=== PATIENT | male | born 1965 | race Caucasian/White ===

== ENCOUNTER 2021-04-05 22:17 | Observation (INO) | payer BC, SELFPAY ==
--- OUTSIDE RECORDS SUMMARY | 2021-04-05 22:24 | XMS REPORT | Continuity of Care Document ---
:1965 Author Organization [facility] t Address [address] [place] [address] Care Team Providers Name Role Phone Singer WYLIE Attending Clinician Audrey VARGAS Attending Clinician Katherine FLOYD Attending Clinician Joseluis WYLIE J Attending Clinician Nahun VARGAS Attending Clinician Shyam WYLIE Attending Clinician Lauren VARGAS Attending Clinician Arden VARGAS, S Attending Clinician Juan A VARGAS, C Attending Clinician [phone] Chinyere VARGAS, F Attending Clinician Tomeka VARGAS, T Attending Clinician Chacho Attending Clinician Raymond FLOYD, E Attending Clinician Dewey VARGAS Attending Clinician Neisha VARGAS, Dinah Attending Clinician Mauricio VARGAS Attending Clinician Suzan DANIELSON, G Attending Clinician Sanjeev VARGAS Attending Clinician SHELIA Attending Clinician Unavailable DEANA Attending Clinician Unavailable Audrey VARGAS Admitting Clinician Shyam WYLIE Admitting Clinician Dion Whitlock MD Admitting Clinician Lauren VARGAS Admitting Clinician SHELIA Admitting Clinician Unavailable DEANA Admitting Clinician Unavailable Problems This patient has no known problems. Allergies, Adverse Reactions, Alerts This patient has no known allergies or adverse reactions. Medications This patient has no known medications. Procedures This patient has no known procedures. Encounters Start End Encounter Admission Attending Care Care Encounter Source Date/Time Date/Time Type Type Clinicians Facility Department ID 2021-04-02 2021-04-03 Emergency Dequan Knowles 1.2.840. 114 [id number] 06:25:00 17:52:00 Antonette Ventura [id number] [place] [id number] 2021-04-01 2021-04-01 Transition Justine Murphy 1.2.840.114 [id number] 00:00:00 00:00:00 of Care Jen Pandya [id number] [place] 4.2.7.2.686 [id number] 2021-03-25 2021-03-31 [facility] Terri Huggins Lynn [facility] 1.2.84 0.114 [id number] 00:52:00 14:16:00 Encounter De Garnica [id number] [place] 4.2.7.2.686 [facility] [id number] 2021-03-05 2021-03-05 Transition Justine Murphy 1.2.840.114 [id number] 00:00:00 00:00:00 of Care Jen Pandya [id number] [place] 4.2.7.2.686 [id number] 2021-02-27 2021-02-27 Transition Justine Murphy 1.2.840.114 [id number] 00:00:00 00:00:00 of Care Jen Pandya 350.1.13.10 [place] 4.2.7.2.686 [id number] 2021-02-21 2021-02-26 [facility] Sheeba Her 1.2.840. 114 [id number] 02:16:00 17:27:00 [facility] 350.1.13.10 Junior Whitlock [facility] 4.2.7.2.686 TomekaAiden [id number] 2021-02-06 2021-02-06 Emergency [facility] 1.2.680.846 [id number] 19:15:00 23:10:00 Sheeba Barclay [place] 350.1.13.10 [place] 4.2.7.2.686 [place] [id number] 2020-12-30 2020-12-30 Transition Justine Flor 1.2.840.114 [id number] 00:00:00 00:00:00 of Care Deja Pandya 350.1.13.10 [place] 4.2.7.2.686 [id number] 2020-12-29 2020-12-29 Patient Anna Andrade Justine 1.2.840.114 [id number] 00:00:00 00:00:00 Outreach Pooja Mumtaz 350.1.13.10 [place] 4.2.7.2.686 [id number] 2020-12-24 2020-12-26 [facility] Dewey Doronvineet Gutierrez 1.2.840.1 14 [id number] 13:50:00 18:38:00 Encounter Brandee Driver [place] 350. 1.13.10 NazChidi Russell [facility] 4.2 .7.2.686 Tru Martínez [id number] 2020-12-24 2020-12-24 Transition Justine Flor 1.2.840.114 [id number] 00:00:00 00:00:00 of Care Deja Pandya 350.1.13.10 [place] 4.2.7.2.686 [id number] 2020-12-20 2020-12-23 [facility] 1.2.840. 114 [id number] 12:04:00 15:18:00 Encounter Dequan Knowles 350.1.13.10 Mar[place] Agu[place] 4.2.7.2.686 [facility] [id number] Results Test Description Test Time Test Comments Results Result Comments Source Chemistry 2019-12-28 04:59:00 Test Item Value Reference Range Interpretation Comme nts Chemistry (test code = NA-T) 136 mmol/L 136-145 N Chemistry (test code = K-T) 3.3 mmol/L 3.5-5.1 L Chemistry (test code = CL) 99 mmol/L 98-107 N Chemistry (test code = CO2) 29 mmol/L 22-29 N Chemistry (test code = ANGP) 11 mmol/L 10-20 N Chemistry (test code = BUN) 14 mg/dL 8.4-25.7 N Chemistry (test code = CREATT) 1.12 mg/dL 0.7-1.3 N Chemistry (test code = 68 Refer ence Range for Estimated EGFRMDRD) GFR: Greater than 90 mL/min/ 1.73 m2NOTE:The MDRD equation h as not been validated for u se with theelderly (ove r 70 years of age), women, patientswith se rious comorbid condition or pe rsons with extremes ofbody size, muscle mass, or nutrit ional status. Chemistry (test code = GLU-T) 99 mg/dL 70-105 N Chemistry (test code = CA) 8.8 mg/dL 7.8-10.44 N [id number] 04:09:00 Test Item Value Reference Range Interpretation Comments Chemistry (test code 134 mmol/L 136-145 L = NA-T) Chemistry (test code 3.8 mmol/L 3.5-5.1 N = K-T) Chemistry (test code 98 mmol/L 98-107 N = CL) Chemistry (test code 23 mmol/L 22-29 N = CO2) Chemistry (test code 17 mmol/L 10-20 N = ANGP) Chemistry (test code 18 mg/dL 8.4-25.7 N = BUN) Chemistry (test code 0.95 mg/dL 0.7-1.3 N = CREATT) Chemistry (test code 82 Referen ce Range for = EGFRMDRD) Estimated GFR: Great er than 90 mL/min/1.73 m2NOTE:The MDRD equation has no t been validated for u se with theelderly (ove r 70 years of age), women, patientswith se rious comorbid condit ion or persons with ex tremes ofbody size, mu scle mass, or nutrit ional status. Chemistry (test code 121 mg/dL 70-105 H = GLU-T) Chemistry (test code 8.3 mg/dL 7.8-10.44 N = CA) Chemistry (test code 2.0 mg/dL 0.2-1.2 H = TBILI-T) Chemistry (test code 7.0 g/dL 6.0-8.3 N = TP) Chemistry (test code 4.0 g/dL 3.5-5.0 N = ALB) Chemistry (test code 3.0 g/dL 2.4-3.5 N = GLOB) Chemistry (test code 1.3 g/dL 1.2-2.2 N = AG) Chemistry (test code 110 U/L 40-110 N = ALP) Chemistry (test code 26 U/L 5-34 N = AST) Chemistry (test code 16 U/L 8-55 N = ALT) [id number] 03:51:00 Test Item Value Reference Range Interpretation Comments Hematology (test code = WBCT) 7.5 thou/uL 4.8-10.8 N Hematology (test code = RBCT) 4.32 mill/uL 4.70-6.10 L Hematology (test code = HGBT) 12.6 g/dL 14.0-18.0 L Hematology (test code = HCTT) 39.0 % 42.0-52.0 L Hematology (test code = MCV) 90.2 fL 78.0-98.0 N Hematology (test code = MCH) 29.2 pg 27.0-31.0 N Hematology (test code = MCHC) 32.3 g/dL 32.0-36.0 N Hematology (test code = RDW) 13.8 % 11.5-14.5 N Hematology (test code = PLTT) 190 thou/uL 130-400 N Hematology (test code = MPV) 7.9 fL 7.4-10.4 N Hematology (test code = %NEUT) 76.4 % 42.0-75.0 H Hematology (test code = %LYMPH) 14.2 % 21.0-51.0 L Hematology (test code = %MONO) 9.1 % 0.0-10.0 N Hematology (test code = %EOS) 0.1 % 0.0-10.0 N Hematology (test code = %BASO) 0.3 % 0.0-1.0 N Hematology (test code = NEUT#) 5.7 thou/uL 1.40-6.50 N Hematology (test code = LYMPH#) 1.1 thou/uL 1.20-3.40 L Hematology (test code = MONO#) 0.7 thou/uL 0.11-0.59 H Hematology (test code = EOS#) 0.0 thou/uL 0.0-0.7 N Hematology (test code = BASO#) 0.0 thou/uL 0.0-0.2 N [id number] 03:13:00 Test Item Value Reference Range Interpretation Comments Chemistry (test 0.037 ng/mL < 0.028 H code = TROPI-T) Reference Ra nge 0.0 0 - 0.028 ng/mL Negative 0.0 29 - 0.29 ng/mL Indeterminate Greater or Equal to 0.3 ng/mL Steffanie torres [facility] Ldmtuybhe2557-57-84 00:10:00 Test Item Value Reference Range Interpretation Comments Chemistry (test 0.032 ng/mL < 0.028 H code = TROPI-T) Reference Ra nge 0.0 0 - 0.028 ng/mL Negative 0.0 29 - 0.29 ng/mL Indeterminate Greater or Equal to 0.3 ng/mL Strongly sugge sts IN Chemistry - Wbbcofzu1601-39-53 22:53:00 Test Item Value Reference Range Interpretation Comments Chemistry - Specials (test code 3.0026 uIU/mL 0.35-4.94 N = TSH3) [id number] 22:25:00 Test Item Value Reference Range Interpretation Comments Chemistry (test code = PHOS-T) 3.3 mg/dL 2.3-4.7 N Xuyfqxnda4727-94-20 22:25:00 Test Item Value Reference Range Interpretation Comments Chemistry (test code = MG) 2.0 mg/dL 1.6-2.6 N Chemistry - BNP, HgbA1c, [id number] 21:19:00 Test Item Value Reference Range Interpretation Comments Chemistry - BNP, HgbA1c, PTHi 38.9 pg/mL 0-100 N (test code = BNP) Tgnjskegq0743-33-82 21:11:00 Test Item Value Reference Range Interpretation Comments Chemistry (test 0.013 ng/mL < 0.028 code = TROPI-R) Reference Ra nge 0.0 0 - 0.028 ng/mL Negative 0.0 29 - 0.29 ng/mL Indeterminate Greater or Equal to 0.3 ng/mL Strongly sugge [facility] Qceyhufap6212-21-32 21:07:00 Test Item Value Reference Range Interpretation Comments Chemistry (test Less than 0.15 0.8-2.0 L Therapeut ic Range: code = DIG-T) ng/mL 0.8 - 2.0 ng/m LToxic Range: Greater than 2. 0 ng/mLDigoxin therapeutic ran ges are valid only if the specimen is drawn 6 to [address] the last dose w as administered. Medical Necessity Digoxin TherapyDate of last dose: thi npWljdzhamr2610-88-53 21:06:00 Test Item Value Reference Range Interpretation Comments Chemistry (test code 141 mmol/L 136-145 N = NA-T) Chemistry (test code 4.3 mmol/L 3.5-5.1 N = K-T) Chemistry (test code 100 mmol/L 98-107 N = CL) Chemistry (test code 23 mmol/L 22-29 N = CO2) Chemistry (test code 22 mmol/L 10-20 H = ANGP) Chemistry (test code 14 mg/dL 8.4-25.7 N = BUN) Chemistry (test code 1.01 mg/dL 0.7-1.3 N = CREATT) Chemistry (test code 77 Referen ce Range for = EGFRMDRD) Estimated GFR: Great er than 90 mL/min/1.73 m2NOTE:The MDRD equation has no t been validated for u se with theelderly (ove r 70 years of age), women, patientswith se rious comorbid condit ion or persons with ex tremes ofbody size, mu scle mass, or nutrit ional status. Chemistry (test code 99 mg/dL 70-105 N = GLU-T) Chemistry (test code 8.9 mg/dL 7.8-10.44 N = CA) Chemistry (test code 0.8 mg/dL 0.2-1.2 N = TBILI-T) Chemistry (test code 7.8 g/dL 6.0-8.3 N = TP) Chemistry (test code 4.4 g/dL 3.5-5.0 N = ALB) Chemistry (test code 3.4 g/dL 2.4-3.5 N = GLOB) Chemistry (test code 1.3 g/dL 1.2-2.2 N = AG) Chemistry (test code 104 U/L 40-110 N = ALP) Chemistry (test code 25 U/L 5-34 N = AST) Chemistry (test code 16 U/L 8-55 N = ALT) [id number] 21:06:00 Test Item Value Reference Range Interpretation Comments Chemistry (test code = CK) 321 U/L 30-200 H [id number] 21:05:00 Test Item Value Reference Range Interpretation Comments Hematology (test code = 6.8 thou/uL 4.8-10.8 N WBCT) Hematology (test code = 4.80 mill/uL 4.70-6.10 N RBCT) Hematology (test code = 14.8 g/dL 14.0-18.0 N HGBT) Hematology (test code = 42.9 % 42.0-52.0 N HCTT) Hematology (test code = MCV) 89.3 fL 78.0-98.0 N Hematology (test code = MCH) 30.8 pg 27.0-31.0 N Hematology (test code = 34.4 g/dL 32.0-36.0 N MCHC) Hematology (test code = RDW) 14.4 % 11.5-14.5 N Hematology (test code = 237 thou/uL 130-400 N PLTT) Hematology (test code = MPV) 7.7 fL 7.4-10.4 N Hematology (test code = NE) 66 % 42-75 N Hematology (test code = LY) 28 % 21-51 N Hematology (test code = MO) 5 % 0-10 N Hematology (test code = EO) 1 % 0-10 N Hematology (test code = Appears Adequate PCOMMENT) Hematology (test code = MC) Normal Clphdpwfe5683-11-11 05:36:00 Test Item Value Reference Range Interpretation Comments Chemistry (test code 138 mmol/L 136-145 N = NA-T) Chemistry (test code 3.8 mmol/L 3.5-5.1 N = K-T) Chemistry (test code 102 mmol/L 98-107 N = CL) Chemistry (test code 27 mmol/L 22-29 N = CO2) Chemistry (test code 13 mmol/L 10-20 N = ANGP) Chemistry (test code 14 mg/dL 8.4-25.7 N = BUN) Chemistry (test code 1.01 mg/dL 0.7-1.3 N = CREATT) Chemistry (test code 77 Referen ce Range for = EGFRMDRD) Estimated GFR: Great er than 90 mL/min/1.73 m2NOTE:The MDRD equation has no t been validated for u se with theelderly (ove r 70 years of age), women, patientswith se rious comorbid condit ion or persons with ex tremes ofbody size, mu scle mass, or nutrit ional status. Chemistry (test code 103 mg/dL 70-105 N = GLU-T) Chemistry (test code 8.2 mg/dL 7.8-10.44 N = CA) [id number] 18:15:00 Test Item Value Reference Range Interpretation Comments Coagulation (test code = PTT) 30.5 SEC 22.9-36.1 N Anticoagulant? IV [id number] 12:40:00 Test Item Value Reference Range Interpretation Comments Coagulation (test code = PTT) 76.6 SEC 22.9-36.1 H Anticoagulant? IV HEPARINChemistry - Ormgplui0436-40-74 06:27:00 Test Item Value Reference Range Interpretation Comments Chemistry - Specials (test code = 19.01 ng/mL 22-322 L PATTY) [id number] 06:16:00 Test Item Value Reference Range Interpretation Comments Chemistry (test code 137 mmol/L 136-145 N = NA-T) Chemistry (test code 4.0 mmol/L 3.5-5.1 N = K-T) Chemistry (test code 101 mmol/L 98-107 N = CL) Chemistry (test code 25 mmol/L 22-29 N = CO2) Chemistry (test code 15 mmol/L 10-20 N = ANGP) Chemistry (test code 12 mg/dL 8.4-25.7 N = BUN) Chemistry (test code 0.89 mg/dL 0.7-1.3 N = CREATT) Chemistry (test code 89 Referen ce Range for = EGFRMDRD) Estimated GFR: Great er than 90 mL/min/1.73 m2NOTE:The MDRD equation has no t been validated for u se with theelderly (ove r 70 years of age), women, patientswith se rious comorbid condit ion or persons with ex tremes ofbody size, mu scle mass, or nutrit ional status. Chemistry (test code 100 mg/dL 70-105 N = GLU-T) Chemistry (test code 8.0 mg/dL 7.8-10.44 N = CA) [id number] 06:16:00 Test Item Value Reference Range Interpretation Comments Chemistry (test code = IRON) 103 ug/dL 65-175 N Gcrlawtfq0478-76-05 06:13:00 Test Item Value Reference Range Interpretation Comments Chemistry (test code = IRON) 104 ug/dL 65-175 N Chemistry (test code = TIBC) 524 mcg/dL 261-462 H Chemistry (test code = IRONPSATC) 20 % 20-50 N [id number] 06:13:00 Test Item Value Reference Range Interpretation Comments Chemistry (test Less than 0.15 0.8-2.0 L Therapeut ic Range: code = DIG-T) ng/mL 0.8 - 2.0 ng/m LToxic Range: Greater than 2. 0 ng/mLDigoxin therapeutic ran ges are valid only if the specimen is drawn 6 to [address] the last dose w as administered. [id number] 05:56:00 Test Item Value Reference Range Interpretation Comments Coagulation (test code = PTT) 58.5 SEC 22.9-36.1 H Anticoagulant? IV [id number] 05:48:00 Test Item Value Reference Range Interpretation Comments Hematology (test code = WBCT) 7.3 thou/uL 4.8-10.8 N Hematology (test code = RBCT) 4.03 mill/uL 4.70-6.10 L Hematology (test code = HGBT) 9.8 g/dL 14.0-18.0 L Hematology (test code = HCTT) 30.5 % 42.0-52.0 L Hematology (test code = MCV) 75.7 fL 78.0-98.0 L Hematology (test code = MCH) 24.3 pg 27.0-31.0 L Hematology (test code = MCHC) 32.1 g/dL 32.0-36.0 N Hematology (test code = RDW) 16.9 % 11.5-14.5 H Hematology (test code = PLTT) 285 thou/uL 130-400 N Hematology (test code = MPV) 8.5 fL 7.4-10.4 N Hematology (test code = %NEUT) 61.5 % 42.0-75.0 N Hematology (test code = %LYMPH) 20.0 % 21.0-51.0 L Hematology (test code = %MONO) 9.9 % 0.0-10.0 N Hematology (test code = %EOS) 7.0 % 0.0-10.0 N Hematology (test code = %BASO) 1.7 % 0.0-1.0 H Hematology (test code = NEUT#) 4.5 thou/uL 1.40-6.50 N Hematology (test code = LYMPH#) 1.5 thou/uL 1.20-3.40 N Hematology (test code = MONO#) 0.7 thou/uL 0.11-0.59 H Hematology (test code = EOS#) 0.5 thou/uL 0.0-0.7 N Hematology (test code = BASO#) 0.1 thou/uL 0.0-0.2 N [id number] 22:19:00 Test Item Value Reference Range Interpretation Comments Coagulation (test code = PTT) 42.4 SEC 22.9-36.1 H Anticoagulant? IV [id number] 14:55:00 Test Item Value Reference Range Interpretation Comments Coagulation (test code = PTT) 31.0 SEC 22.9-36.1 N Comment Baseline 6hrs after starting drip; then protocolAnticoagulant? IV [id number] 14:48:00 Test Item Value Reference Range Interpretation Comments Hematology (test code = HGBT) 9.8 g/dL 14.0-18.0 L Hematology (test code = HCTT) 30.0 % 42.0-52.0 L Hematology (test code = PLTT) 309 thou/uL 130-400 N Comment Baseline and Q48H while patient on Heparin OfldYwcmxwnlv1252-15-57 02:50:00 Test Item Value Reference Range Interpretation Comments Chemistry (test 0.012 ng/mL < 0.028 code = TROPI-R) Reference Ra nge 0.0 0 - 0.028 ng/mL Negative 0.0 29 - 0.29 ng/mL Indeterminate Greater or Equal to 0.3 ng/mL Strongly sugge sts IN Cgepuhzxwz4270-12-75 01:04:00 Test Item Value Reference Range Interpretation Comments Urinalysis (test code = Light-Yellow Yellow UACLR) Urinalysis (test code = Clear Clear UACLY) Urinalysis (test code = SPGR) 1.025 1.002-1.036 N Urinalysis (test code = TARA) 5.5 5.0-9.0 N Urinalysis (test code = Negative Rohit/uL Negative UALEU) Urinalysis (test code = Negative Negative UANIT) Urinalysis (test code = 20 mg/dL Neg-Trace PROUADIP) Urinalysis (test code = Normal mg/dL Negative GLUCU) Urinalysis (test code = KETU) Negative mg/dL Negative Urinalysis (test code = Normal mg/dL Less than 2 UAUROB) Urinalysis (test code = Negative Negative UABIL) Urinalysis (test code = Negative Negative UABLD) Urine Source: Urine [id number] 22:45:00 Test Item Value Reference Range Interpretation Comments Chemistry (test Less than < 0.028 code = TROPI-R) 0.010 ng/mL Reference Ra nge 0. 00 - 0.028 ng/mL Negative 0.029 - 0.29 n g/mL Indeterminate Greater or Equa l to 0.3 ng/mL St [place] suggests IN Yzzpzusie0949-30-23 20:48:00 Test Item Value Reference Range Interpretation Comments Chemistry (test code = CK) 124 U/L 30-200 N Qlrukydpl7579-00-38 20:48:00 Test Item Value Reference Range Interpretation Comments Chemistry (test code = LIP) 35 U/L 8-78 N Chemistry - BNP, HgbA1c, [id number] 20:45:00 Test Item Value Reference Range Interpretation Comments Chemistry - BNP, HgbA1c, PTHi 80.7 pg/mL 0-100 N (test code = BNP) [id number] 20:45:00 Test Item Value Reference Range Interpretation Comments Chemistry (test Less than < 0.028 code = TROPI-R) 0.010 ng/mL Reference Ra nge 0. 00 - 0.028 ng/mL Negative 0.029 - 0.29 n g/mL Indeterminate Greater or Equa l to 0.3 ng/mL St rongly suggests IN Qifszdycr0839-53-22 20:40:00 Test Item Value Reference Range Interpretation Comments Chemistry (test 144 mmol/L 136-145 N code = NA-T) Chemistry (test 4.0 mmol/L 3.5-5.1 N code = K-T) Chemistry (test 110 mmol/L 98-107 H code = CL) Chemistry (test 22 mmol/L 22-29 N code = CO2) Chemistry (test 16 mmol/L 10-20 N code = ANGP) Chemistry (test 9 mg/dL 8.4-25.7 N code = BUN) Chemistry (test 0.84 mg/dL 0.7-1.3 N code = CREATT) Chemistry (test Greater than 90 Referenc e Range for code = EGFRMDRD) Estimated G FR: Gre ater than 90 mL/min/ 1.73 m2NOTE:The MDRD equation has no t been validated for use with theeld erly (over 70 years of age), women, patients with serious comorbi d condition or pe rsons with extremes o fbody size, muscle ma ss, or nutritional status. Chemistry (test 116 mg/dL 70-105 H code = GLU-T) Chemistry (test 7.9 mg/dL 7.8-10.44 N code = CA) Chemistry (test 0.2 mg/dL 0.2-1.2 N code = TBILI-T) Chemistry (test 6.9 g/dL 6.0-8.3 N code = TP) Chemistry (test 3.9 g/dL 3.5-5.0 N code = ALB) Chemistry (test 3.0 g/dL 2.4-3.5 N code = GLOB) Chemistry (test 1.3 g/dL 1.2-2.2 N code = AG) Chemistry (test 100 U/L 40-150 N code = ALP) Chemistry (test 20 U/L 5-34 N code = AST) Chemistry (test 15 U/L 8-55 N code = ALT) [id number] 20:40:00 Test Item Value Reference Range Interpretation Comments Chemistry (test code = MG) 2.1 mg/dL 1.6-2.6 N [id number] 20:31:00 Test Item Value Reference Range Interpretation Comments Coagulation (test 0.41 *mcg/mL 0.27-0.43 N * Referenc e Range code = DDIMTT) Units: mcg/mL of fibri nogen equivalent units(FEU)Based upon a retrospective study of [facility] tients in March 2006, a result of"Less than 0. 44 mcg/mL FEU" is predictive of t he absence ofa DVT or PE. Qxkqsttvbg8536-02-25 20:18:00 Test Item Value Reference Range Interpretation Comments Hematology (test code = WBCT) 5.9 thou/uL 4.8-10.8 N Hematology (test code = RBCT) 4.31 mill/uL 4.70-6.10 L Hematology (test code = HGBT) 10.5 g/dL 14.0-18.0 L Hematology (test code = HCTT) 32.5 % 42.0-52.0 L Hematology (test code = MCV) 75.3 fL 78.0-98.0 L Hematology (test code = MCH) 24.3 pg 27.0-31.0 L Hematology (test code = MCHC) 32.3 g/dL 32.0-36.0 N Hematology (test code = RDW) 17.5 % 11.5-14.5 H Hematology (test code = PLTT) 363 thou/uL 130-400 N Hematology (test code = MPV) 7.6 fL 7.4-10.4 N Hematology (test code = %NEUT) 44.6 % 42.0-75.0 N Hematology (test code = %LYMPH) 39.1 % 21.0-51.0 N Hematology (test code = %MONO) 11.4 % 0.0-10.0 H Hematology (test code = %EOS) 4.3 % 0.0-10.0 N Hematology (test code = %BASO) 0.6 % 0.0-1.0 N Hematology (test code = NEUT#) 2.6 thou/uL 1.40-6.50 N Hematology (test code = LYMPH#) 2.3 thou/uL 1.20-3.40 N Hematology (test code = MONO#) 0.7 thou/uL 0.11-0.59 H Hematology (test code = EOS#) 0.3 thou/uL 0.0-0.7 N Hematology (test code = BASO#) 0.0 thou/uL 0.0-0.2 N XR Abdomen 2 [facility] Pt Name: MYRNA PEREZ [employer] Phys: [place] [address] : 1965 Age: 54 SEX:M [phone] Exam Date: 12/25/19 Status: ADM IN Acct: [id number] Loc: [facility]OLD Pt Unit #: [id number] Report #: [id number] CC: MAGDALENA BASS MD IMAGING SERVICES REPORT Order # Category/Exam [id number] RAD/XR Abdomen 2 View ([id number]): . Results EXAM: XR Abdomen 2 View DATE: 12/25/2019 4:08 AM INDICATION: Nausea vomiting COMPARISON: None. FINDING: Lung bases are clear. No pneumoperitoneum is evident. Bowel gas pattern is unobstructed. No suspicious calcifications are evident. There is mildscattered degenerative change of the visualized osseous structures. IMPRESSION:No acute abnormality. Reported By: Dewey Roach MD Electronically Signed Date/Time: 12/25/19 0744 Technologist: SÁNCHEZ Dictated Date/Time: 12/25/19 0743 Transcribed Date/Time:[facility] MYRNA PEREZ [employer] Phys: [place] [address] : 1965 Age: 54 SEX:M [phone] Exam Date: 12/24/19 Status: ADM IN Acct: [id number] Loc: ER[facility]OLD Pt Unit #: [id number] Report #: [id number] CC: MARIELA JAVED MD, MALIK MD IMAGING SERVICES REPORT Order # Category/[id number] RAD/XR Chest 1 View Portable ([id number]): . Results PORTABLE CHEST: History: Chest pain Comparison: 04-05-19 FINDINGS: Cardiomegaly. Mild vascular congestion. Noconsolidation or focal infiltrate. Small effusions are not excluded. Chest appears unchanged from the prior study. IMPRESSION: Cardiomegaly with mild to moderate vascular congestion. POS: AGW Reported By: Abdias Nieves MD Electronically Signed Date/Time: 12/25/19 09 Technologist: SÁNCHEZ Dictated Date/Time: 12/24/192044 Transcribed Date/Time: 12/24/192106XR [facility] MY[facility] [address] Phys: Shavonne Paul NP [facility] [place] [id number] : 1965 Age: 54 SEX:M [phone] Exam Date: 08/02/19 Status: REG ER Acct: [id number] Loc: ERS Pt Unit #: [id number] Report #: [id number] CC: Shavonne Paul NP [facility] REPORT Order # Category/Exam [id number] RAD/XR Chest 1 View Portable ([id number]): . Results Chest one view HISTORY: Chest pain. FINDINGS: No co mparison. Cardiac silhouette is magnified and enlarged. Pulmonary vasculature upper limits of normal. Mediastinum is midline. No lobar consolidation or evidence of pneumothorax. IMPRESSION: Cardiomegaly. Borderline pulmonary vascular congestion. Reported By: Maeve Walker Tracy ctronically Signed: 08/02/2019 8:28 PM Reported By: Herb Walker MD Electronically Signed Date/Time: 08/02/192027 Technologist: Dictated Date/Time: 08/02/192026 Transcribed Date/Time:
[2021-04-05] MEDS ORDERED: METOPROLOL TAR 25 MG TAB ONE (23:36)
[2021-04-06] MEDS ORDERED: dilTIAZem HCL 25 MG/5 ML VIAL IV ONE (00:20)
[2021-04-06 00:21] LABS: Protime INR 1.12
[2021-04-06 00:32] LABS: Absolute Lymphocytes (CBC) 1.5 K/uL (0.7-4.9); Basophils % 0.3 % (0-1.3); Hematocrit 47.7 % (39.6-49.0); Lymphocytes % 19.6 % (15.3-44.8); MPV 8.2 fL (7.6-11.3)
[2021-04-06 00:45] LABS: ALT/SGPT 50 U/L (12-78); AST/SGOT 72 U/L (15-37); Albumin 4.1 g/dL (3.4-5.0); Alkaline Phosphatase 132 U/L (45-117); BUN Blood Urea Nitrogen 11 mg/dL (7-18); Bicarbonate 30 mmol/L (21-32); Bilirubin Direct 0.3 mg/dL (0-0.2); Bilirubin Total 0.7 mg/dL (0.2-1.0); Glucose Level 102 mg/dL (74-106); Magnesium 2.3 mg/dL (1.8-2.4); NT PRO-BNP 232 pg/mL (<125); Protein, Total 8.6 g/dL (6.4-8.2); Sodium Level 142 mmol/L (136-145); Troponin (Emerg Dept Use Only) < 0.02 ng/mL (0.0-0.045)
[2021-04-06] MEDS ORDERED: ONDANSETRON 4 MG/2 ML VIAL ONE (00:57)
[2021-04-06] MEDS ORDERED: MORPHINE 4 MG/ML SYR ONE (00:57)
[2021-04-06] MEDS ORDERED: KETOROLAC 30 MG/ML INJ ONE (01:43)
--- NOTE | 2021-04-06 02:16 | EDPHYS ---
Physician Documentation [facility] Name: Aidan Perez Age: 56 yrs Sex: Male : 1965 Arrival Date: 04/05/2021 Time: 22:19 Bed 7 Private MD: ED Physician Kevin Mathew HPI: 04/06 02:16 This 56 yrs old Male presents to ER via EMS with complaints of chest pain. tw4 02:16 The patient or guardian reports chest pain that is located primarily in the anterior tw4 chest wall. Onset: today. The pain does not radiate. Associated signs and symptoms: The patient has no apparent associated signs or symptoms. Modifying factors: The symptoms are alleviated by nothing. the symptoms are aggravated by nothing. Severity of pain: At its worst the pain was moderate in the emergency department the pain is unchanged. Historical: - Allergies: 04/05 22:37 Keflex; wh - PMHx: 22:37 Afib with RVR; Hypertension; wh - Immunization history:: Adult Immunizations up to date. - Social history:: Smoking status: unknown. ROS: 04/06 02:16 Constitutional: Negative for fever, chills, and weight loss, Eyes: Negative for injury, tw4 pain, redness, and discharge, Neck: Negative for injury, pain, and swelling, Respiratory: Negative for shortness of breath, cough, wheezing, and pleuritic chest pain, Abdomen/GI: Negative for abdominal pain, nausea, vomiting, diarrhea, and constipation, Back: Negative for injury and pain, MS/Extremity: Negative for injury and deformity, Skin: Negative for injury, rash, and discoloration, Neuro: Negative for headache, weakness, numbness, tingling, and seizure. Cardiovascular: Positive for chest pain, Negative for edema, orthopnea, palpitations, paroxysmal nocturnal dyspnea. Exam: 02:16 Constitutional: This is a well developed, well nourished patient who is awake, alert, tw4 and in no acute distress. Head/Face: Normocephalic, atraumatic. Chest/axilla: Normal chest wall appearance and motion. Nontender with no deformity. No lesions are appreciated. Respiratory: Lungs have equal breath sounds bilaterally, clear to auscultation and percussion. No rales, rhonchi or wheezes noted. No increased work of breathing, no retractions or nasal flaring. Abdomen/GI: Soft, non-tender, with normal bowel sounds. No distension or tympany. No guarding or rebound. No evidence of tenderness throughout. Back: No spinal tenderness. No costovertebral tenderness. Full range of motion. Skin: Warm, dry with normal turgor. Normal color with no rashes, no lesions, and no evidence of cellulitis. MS/ Extremity: Pulses equal, no cyanosis. Neurovascular intact. Full, normal range of motion. Neuro: Awake and alert, GCS 15, oriented to person, place, time, and situation. Cranial nerves II-XII grossly intact. Motor strength 5/5 in all extremities. Sensory grossly intact. Cerebellar exam normal. Normal gait. 02:16 Cardiovascular: Rate: tachycardic, actual rate is 166 bpm, Rhythm: irregularly irregular. Vital Signs: 04/05 22:32 BP 152 / 89; Pulse 126; Resp 20; Temp 98.2; Pulse Ox 97% on R/A; Weight 199.58 kg; Height 6 ft. 3 in. (190.50 cm); Pain 10; 04/06 00:00 BP 123 / 79; Pulse 106; Resp 18; Pulse Ox 98% on R/A; wh 02:00 BP 140 / 76; Pulse 106; Resp 18; Pulse Ox 98% on R/A; 03:15 BP 135 / 92; Pulse 99; Resp 18; Pulse Ox 94% on R/A; 05 22:32 Body Mass Index 55.00 (199.58 kg, 190.50 cm) wh MDM: 04/05 22:19 Patient medically screened. tw4 04/06 02:34 Data reviewed: vital signs, nurses notes. Data interpreted: equipment monitor phototypesetting: rhythm is tw4 normal sinus rhythm, Pulse oximetry: Interpretation: acceptable. Counseling: I had a detailed discussion with the patient and/or guardian regarding: the historical points, exam findings, and any diagnostic results supporting the discharge/admit diagnosis. 04/05 22:37 Order name: Basic Metabolic Panel 04/05 22:37 Order name: CBC with Diff 04/05 22:37 Order name: LFT's; Complete Time: 01:00 04/06 01:01 Interpretation: Normal except: A/G 0.9; AST 72; ALK 132; BILID 0.3; TP 8.6; GLOB 4.5. [facility] 04/05 22:37 Order name: Magnesium; Complete Time: 01: 04/06 01:02 Interpretation: Within normal limits: MG 2.3. 4 04/05 22:37 Order name: NT PRO-BNP; Complete Time: 01:00 04/06 01:01 Interpretation: Normal except: NT PRO-BNP 232. [facility] 04/05 22:37 Order name: PT-INR; Complete Time: 01: 04/06 01:01 Interpretation: Normal except: PT 12.9. [facility] 04/05 22:37 Order name: Troponin (emerg Dept Use Only); Complete Time: : 04/05 22:37 Order name: XRAY Chest (1 view) 04/05 22:37 Order name: Basic Metabolic Panel; Complete Time: 01:00 [facility] 05 01:02 Interpretation: Normal except: GFR 79. [facility] 04/05 22:37 Order name: CBC with Automated Diff; Complete Time: 01:00 [facility] 04/06 00:16 Order name: COVID-19 : Document "Date of Symptom Onset" if Symptomatic. 04/06 01:17 Order name: SARS-COV-2 RT PCR [facility] 04/05 22:37 Order name: EKG; Complete Time: 22:37 04/05 22:37 Order name: Cardiac monitoring; Complete Time: 00: 04/05 22:37 Order name: EKG - Nurse/Tech; Complete Time: 00:00 04/05 22:37 Order name: IV Saline Lock; Complete Time: 00: 04/05 22:37 Order name: Labs collected and sent; Complete Time: 00: 04/05 22:37 Order name: O2 Per Protocol; Complete Time: 00: 04/05 22:37 Order name: O2 Sat Monitoring; Complete Time: 00: 04/06 03:04 Order name: CONS Physician Consult ED[facility] EC:40 Rate is 179 beats/min. Rhythm is irregularly irregular. QRS [place] is Normal. MT interval tw4 is normal. QT interval is normal. No Q waves. T waves are Normal. Clinical impression: Atrial Fibrillation. Interpreted by me. Reviewed by me. Administered Medications: 05/09 23:19 Drug: Metoprolol 25 mg Route: PO; 04/06 03:22 Follow up: Response: No adverse reaction 04/05 23:28 Drug: morphine 4 mg {Note: RASS 0.} Route: IVP; Site: right antecubital; 04/06 03:45 Follow up: Response: No adverse reaction; Pain is decreased; RASS: Alert and Calm (0) 04/05 23:30 Drug: Zofran (Ondansetron) 4 mg Route: IVP; Site: right antecubital; 04/06 03:45 Follow up: Response: No adverse reaction 00:13 Drug: Cardizem (diltiazem) 20 mg Route: IVP; Site: right antecubital; 03:22 Follow up: Response: No adverse reaction 01:28 Drug: TORadol (ketorolac) 30 mg Route: IVP; Site: right antecubital; 03:22 Follow up: Response: No adverse reaction 03:29 Drug: Dilaudid (HYDROmorphone) 0.5 mg {Note: RASS 0.} Route: IVP; Site: right antecubital; 03:45 Follow up: Response: No adverse reaction; Pain is decreased; RASS: Alert and Calm (0) Disposition: 04/06/21 02:15 Hospitalization ordered by Morris Carter for Inpatient Admission. Preliminary diagnosis are Paroxysmal atrial fibrillation, Angina pectoris. - Bed requested for Telemetry/MedSurg (Inpatient). - Status is Inpatient Admission. mw2 - Condition is Stable. - Problem is new. - Symptoms have improved. Signatures: Dispatcher [employer] [facility] Brittaney Burnette RN RN Edwin Bunch RN RN Kevin Mathew MD MD tw4 Terri Burnette mw2 Corrections: (The following items were deleted from the chart) 00:27 00:16 CORONAVIRUS ordered. ED[facility] EDMS 03:25 02:15 Hospitalization Ordered by Morris Carter DO for Inpatient Admission. Preliminary bb diagnosis is Paroxysmal atrial fibrillation; Angina pectoris. Bed requested for Telemetry/MedSurg (Inpatient). Status is Inpatient Admission. Condition is Stable. Problem is new. Symptoms have improved. tw4 03:46 03:25 04/06/2021 02:15 Hospitalization Ordered by Morris Carter DO for Inpatient mw2 Admission. Preliminary diagnosis is Paroxysmal atrial fibrillation; Angina pectoris. Bed requested for Telemetry/MedSurg (Inpatient). Status is Inpatient Admission. Condition is Stable. Problem is new. Symptoms have improved. bb
--- NOTE | 2021-04-06 02:16 | ER ---
Nurse's Notes [facility] Name: Aidan Perez Age: 56 yrs Sex: Male : 1965 Arrival Date: 04/05/2021 Time: 22:19 Bed 7 Private MD: Diagnosis: Paroxysmal atrial fibrillation;Angina pectoris Presentation: 04/05 22:32 Chief complaint: EMS states: Pt was just discharged yesterday from [facility], was wh toned for chest pain that started this noon. Coronavirus screen: Client denies travel out of the [place] in the last 14 days. At this time, the client does not indicate any symptoms associated with coronavirus-19. Ebola Screen: Patient negative for fever greater than or equal to 101.5 degrees Fahrenheit, and additional compatible Ebola Virus Disease symptoms Patient denies exposure to infectious person. Initial Sepsis Screen: Does the patient meet any 2 criteria? HR > 90 bpm. Does the patient have a suspected source of infection? No. Patient's initial sepsis screen is negative. Risk Assessment: Do you want to hurt yourself or someone else? Patient reports no desire to harm self or others. Onset of symptoms was April 05, 2021. 22:32 Method Of Arrival: EMS: [facility] 22:32 Acuity: ANA 3 Historical: - Allergies: 22:37 Keflex; wh - PMHx: 22:37 Afib with RVR; Hypertension; wh - Immunization history:: Adult Immunizations up to date. - Social history:: Smoking status: unknown. Screenin:00 Abuse screen: Denies threats or abuse. Denies injuries from another. Nutritional screening: No deficits noted. Tuberculosis screening: No symptoms or risk factors identified. Fall Risk Fall in past 12 months (25 points). Assessment: 23:00 General: Appears in no apparent distress. unkempt, Behavior is cooperative. Pain: Complains of pain in chest Pain does not radiate. Pain currently is 7 out of 10 on a pain scale. Quality of pain is described as aching, Pain began at noon. Neuro: Level of Consciousness is awake, alert, obeys commands, Oriented to person, place, time, situation. Cardiovascular: Reports chest pain, Heart tones S1 S2 Rhythm is atrial fibrillation with rapid ventricular response. Respiratory: Airway is patent Respiratory effort is even, unlabored, Respiratory pattern is regular, symmetrical, Breath sounds are diminished. GI: Abdomen is round non-distended. : No signs and/or symptoms were reported regarding the genitourinary system. EENT: No signs and/or symptoms were reported regarding the EENT system. Derm: Skin is intact. Musculoskeletal: Circulation, motion, and sensation intact. 04/06 00:05 Reassessment: Patient appears in no apparent distress at this time. No changes from previously documented assessment. Patient and/or family updated on plan of care and expected duration. Pain level reassessed. Patient is alert, oriented x 3, equal unlabored respirations, skin warm/dry/pink. 01:10 Reassessment: Patient appears in no apparent distress at this time. Patient and/or family updated on plan of care and expected duration. Pain level reassessed. Patient is alert, oriented x 3, equal unlabored respirations, skin warm/dry/pink. 03:00 Reassessment: Patient appears in no apparent distress at this time. Patient and/or family updated on plan of care and expected duration. Pain level reassessed. Patient is alert, oriented x 3, equal unlabored respirations, skin warm/dry/pink. Vital Signs: 04/05 22:32 BP 152 / 89; Pulse 126; Resp 20; Temp 98.2; Pulse Ox 97% on R/A; Weight 199.58 kg; Height 6 ft. 3 in. (190.50 cm); Pain 7/10; 04/06 00:00 BP 123 / 79; Pulse 106; Resp 18; Pulse Ox 98% on R/A; 02:00 BP 140 / 76; Pulse 106; Resp 18; Pulse Ox 98% on R/A; 03:15 BP 135 / 92; Pulse 99; Resp 18; Pulse Ox 94% on R/A; 04/05 22:32 Body Mass Index 55.00 (199.58 kg, 190.50 cm) ED Course: 04/05 22:19 Patient arrived in ED. mw2 22:19 Kevin Mathew MD is Attending Physician. tw4 22:32 Edwin Bunch, RN is Primary Nurse. 22:36 Triage completed. 23:00 Patient has correct armband on for positive identification. Placed in gown. Bed in low position. Call light in reach. Side rails up X 1. teletypesetter monitor on. Pulse ox on. NIBP on. 23:00 Arm band placed on right wrist. 23:03 XRAY Chest (1 view) In Process Unspecified. [facility] 04/06 00:00 Initial lab(s) drawn, by me, sent to lab. Inserted saline lock: 18 gauge in right bb antecubital area, using aseptic technique. Blood collected. 02:09 Morris Carter DO is Hospitalizing Provider. tw4 03:45 No provider procedures requiring assistance completed. Patient admitted, IV remains in place. Administered Medications: 04/05 23:19 Drug: Metoprolol 25 mg Route: PO; 04/06 03:22 Follow up: Response: No adverse reaction 04/05 23:28 Drug: morphine 4 mg {Note: RASS 0.} Route: IVP; Site: right antecubital; 04/06 03:45 Follow up: Response: No adverse reaction; Pain is decreased; RASS: Alert and Calm (0) 04/05 23:30 Drug: Zofran (Ondansetron) 4 mg Route: IVP; Site: right antecubital; 04/06 03:45 Follow up: Response: No adverse reaction 00:13 Drug: Cardizem (diltiazem) 20 mg Route: IVP; Site: right antecubital; 03:22 Follow up: Response: No adverse reaction 01:28 Drug: TORadol (ketorolac) 30 mg Route: IVP; Site: right antecubital; 03:22 Follow up: Response: No adverse reaction 03:29 Drug: Dilaudid (HYDROmorphone) 0.5 mg {Note: RASS 0.} Route: IVP; Site: right antecubital; 03:45 Follow up: Response: No adverse reaction; Pain is decreased; RASS: Alert and Calm (0) Outcome: 02:15 Decision to Hospitalize by Provider. tw4 03:45 Admitted to [facility] accompanied by nurse, via stretcher, room 426, with chart, Report called to Maximino FLOYD 03:45 Condition: stable 03:45 Instructed on the need for admit. 03:46 Patient left the ED. mw2 Signatures: Dispatcher [employer] EDMS Burnette Brittaney, RN RN Edwin Bunch RN RN Kevin Mathew MD MD tw4 Terri Burnette mw2 Corrections: (The following items were deleted from the chart) 03:44 03:44 Zofran (Ondansetron) 4 mg IVP in right antecubital [facility]
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
[2021-04-06] MEDS ORDERED: HYDROMORPHONE HCL 0.5 MG/0.5 ML INJ ONE (03:46)
[2021-04-06] MEDS ORDERED: NITROGLYCERIN 0.4 MG/TAB SL PRN (04:26)
[2021-04-06] MEDS ORDERED: ACETAMINOPHEN 500 MG TAB PO PRN (04:26)
[2021-04-06] MEDS ORDERED: ONDANSETRON 4 MG/2 ML VIAL IV PRN (04:26)
[2021-04-06] MEDS ORDERED: ALBUTEROL 2.5 MG/3 ML NEB SOL NEB PRN (04:26)
[2021-04-06] MEDS ORDERED: HYDROCODONE/APAP 10/325 TAB PO PRN (04:26)
[2021-04-06] MEDS: MORPHINE 2 MG/ML SYR IV PRN ×2 (04:39→09:42)
[2021-04-06 05:02] VITALS: BMI 55.0
[2021-04-06 05:35] LABS: Absolute Lymphocytes (CBC) 1.9 K/uL (0.7-4.9); Basophils % 0.4 % (0-1.3); Hematocrit 43.3 % (39.6-49.0); Lymphocytes % 23.8 % (15.3-44.8); MPV 8.2 fL (7.6-11.3); RBC Red Blood Cell Count 4.66 M/uL (4.33-5.43)
[2021-04-06] MEDS ORDERED: IBUPROFEN 400 MG TAB PO PRN (05:57)
[2021-04-06] MEDS ORDERED: DIAZEPAM 5 MG TABLET PO PRN (05:57)
[2021-04-06 06:14] LABS: ALT/SGPT 42 U/L (12-78); AST/SGOT 56 U/L (15-37); Albumin 3.7 g/dL (3.4-5.0); Alkaline Phosphatase 115 U/L (45-117); BUN Blood Urea Nitrogen 13 mg/dL (7-18); Bicarbonate 30 mmol/L (21-32); Bilirubin Total 0.7 mg/dL (0.2-1.0); Glucose Level 88 mg/dL (74-106); HDL Cholesterol 47 mg/dL (40-60); LDL Cholesterol, Calculated 88 (<130); Magnesium 2.2 mg/dL (1.8-2.4); Phosphorus 3.8 mg/dL (2.5-4.9); Potassium 3.5 mmol/L (3.5-5.1); Protein, Total 7.6 g/dL (6.4-8.2); Sodium Level 141 mmol/L (136-145)
[2021-04-06] MEDS: INSULIN -REGULAR HUMAN 50 UNIT/0.5 ML ML SQ SCH ×2 (07:30→11:30)
--- NOTE | 2021-04-06 07:48 | RAD REPORT ---
EXAM DESCRIPTION: RAD - Chest Single View - 04/05/2021 11:03 pm CLINICAL HISTORY: CHEST PAIN, recent hospitalization COMPARISON: Portable January 2014 TECHNIQUE: AP portable chest image was obtained 04/05/2021 11:03 pm . FINDINGS: Exam is limited by portable technique and large body habitus. Lung [place] are slightly und erinflated. No peripheral mass or consolidation. Interstitial pattern is prominent but not substantially differen t from comparison. Mild interstitial edema or infiltrate could potentially be masked. Enlarged cardiac silhouette is present similar to comparison. Upper lobe vasculature is mildly promin ent but not significantly different. No measurable pleural effusion and no pneumothorax. No acute bon y abnormality seen. No acute aortic findings suspected. IMPRESSION: No focal lung parenchymal process identifiable. Cardiomegaly, mild vascular engorgement and increased interstitial opacification are present. These a re stable findings. Mild failure or volume overload could be masked.
[2021-04-06] MEDS ORDERED: METOPROLOL TAR 25 MG TAB PO SCH (08:00)
[2021-04-06 08:15] LABS: Urine Appearance TURBID (Clear); Urine Blood NEGATIVE (Negative); Urine Color ORANGE (Yellow); Urine Glucose NEGATIVE (Negative); Urine Protein 1+ (Negative); Urine Specific Gravity >=1.030 (1.005-1.030)
[2021-04-06 08:19] LABS: Urine Microscopic Reflex ORDER UMIC
[2021-04-06 08:20] LABS: Urine Bilirubin 1+ (Negative)
[2021-04-06 08:32] LABS: Urine Bacteria NONE SEEN /HPF (NONE SEEN); Urine RBC <5 /HPF (NONE SEEN)
[2021-04-06 08:34] LABS: Urine Amorphous Sediment 3+ /HPF (NONE SEEN); Urine Urothelial Cells <5 /HPF (NONE SEEN)
[2021-04-06] MEDS ORDERED: MONTELUKAST 10 MG TAB PO SCH (09:00)
[2021-04-06] MEDS ORDERED: GABAPENTIN 300 MG CAP PO SCH (09:00)
[2021-04-06] MEDS ORDERED: ENOXAPARIN 40 MG/0.4 ML SQ SCH (09:00)
[2021-04-06] MEDS ORDERED: FOLIC ACID 1 MG TABLET PO SCH (09:00)
[2021-04-06] MEDS ORDERED: LOSARTAN POTASSIUM 50 MG TABLET PO SCH ×2 (09:00)
[2021-04-06] MEDS ORDERED: ASPIRIN EC 81 MG TAB PO SCH (09:00)
[2021-04-06] MEDS ORDERED: DIGOXIN 0.125 MG TABLET PO SCH (09:00)
[2021-04-06] MEDS ORDERED: DILTIAZEM HCL 120 MG SR CAP PO SCH (09:00)
[2021-04-06] MEDS ORDERED: APIXABAN 5 MG TABLET PO SCH (09:00)
[2021-04-06] MEDS ORDERED: LEVOTHYROXINE SOD 0.025 MG TAB PO SCH (09:00)
[2021-04-06] MEDS ORDERED: POTASSIUM CL SA 10 MEQ TAB PO SCH (09:00)
[2021-04-06] MEDS ORDERED: PANTOPRAZOLE 40MG TABLET PO SCH (09:00)
[2021-04-06] MEDS ORDERED: FUROSEMIDE 20 MG/ 2ML VIAL IV SCH (11:16)
--- NOTE | 2021-04-06 11:22 | P.DS ---
Admission Date: 04/06/21 Discharge Date: 04/06/21 Primary Care Provider: Dr. Ballard Disposition: ROUTINE DISCHARGE Discharge Condition: GOOD Reason for Admission: afib with RVR Consultations: Cardiology-Dr. Cifuentes Procedures: COVID: Negative CXR: FINDINGS: Exam is limited by portable technique and large body habitus. Lung [place] are slightly underinflated. No peripheral mass or consolidation. Interstitial pattern is prominent but not substantially different from comparison. Mild interstitial edema or infiltrate c ould potentially be masked. Enlarged cardiac silhouette is present similar to comparison. Upper lobe vasculature is mildly prominent but not significantly different. No measurable pleural effusion and no pneumothorax. No acute bony abnormality seen. No acute aortic findings suspected. IMPRESSION: No focal lung parenchymal process identifiable. Cardiomegaly, mild vascular engorgement and increased interstitial opacification are present. These are stable findings. Mild failure or volume overload could be masked. Medical Problem List: Chest pain secondary to Atrial fibrillation with RVR Chronic diastolic CHF HTN Hypothyroidism Obstructive sleep apnea Chronic seasonal allergies GERD Hyperlipidemia Chronic pain Obesity, BMI 55 Brief History of Present Illness: 56 yo male with HTN, hypothyroidism, history of afib and chronic pain here today for chest pain in afib with RVR (HR to the 170s). He says since 1230 yesterday he has had constant 10/10 sternal chest pain. He feels like someone has shot him in the chest. He reports dizziness, lightheadedness, diaphoresis. Denies chills, nausea and vomiting. He said he was last admitted for similar symptoms 1 month ago. His makeup artistry instructor is Dr. Caceres..Last cath was 4 years ago with no intervention. Troponins negative. Patient recently started on Lasix. Patient admitted for further evaluation and treatment. Hospital Course: Patient presented with chest pain. Patient with history of hypertension, hypothyroidism, obstructive sleep apnea, CHF, GERD and hyperlipidemia. Patient was admitted for further evaluation. Patient seen and evaluated by cardiology. All medications were restarted. Patient found to have atrial fibrillation with RVR. Patient with history of atrial fibrillation. Patient now back in improved rhythm. Patient remains in atrial fibrillation. Cardiology recommends no further intervention. At discharge patient will continue with aspirin 81 mg daily, Eliquis 5 mg 1 pill twice daily, digoxin 0.125 mg daily, diltiazem 240 mg daily, losartan 100 mg daily, metoprolol 75 mg 1 pill twice daily, Lasix 40 mg daily, and potassium supplementation as directed. Recommend follow-up with cardiology in 1 to 2 weeks to follow-up hospitalization. Patient with chronic diastolic CHF. At discharge patient will continue with Lasix 40 mg daily along with potassium supplementation. Recommend to maintain a 1500 cc/day fluid restriction and low-salt diet. Recommend to monitor weight daily. If weight increases by more than 5 pounds he is to contact his PCP or cardiology for further recommendation. Further adjustment in medication may be required. This can be done with the help of his PCP or makeup artistry instructor. Patient with hypertension. This has remained stable. At discharge patient will continue with diltiazem 240 mg daily, losartan 100 mg daily and metoprolol 75 mg 1 pill twice daily. Recommend to maintain blood pressure less than 130/80. Further adjustment can be done by his PCP or cardiology. Recommend follow-up with PCP or cardiology to follow-up as hospitalization to continue his care. Patient with hypothyroidism. At discharge patient will continue with levothyroxine 25 mcg daily. Patient with obstructive sleep apnea. Patient will continue with CPAP at night. Patient with GERD. At discharge patient will continue with Prilosec as directed. Patient with chronic seasonal allergies. At discharge patient will continue with Singulair 10 mg daily. Patient with chronic pain. At discharge patient will continue with gabapentin 600 mg 3 times a day. Patient will also continue with hydrocodone as directed. Recommend to discontinue Valium as this will increase sedation and interact with his current medications. Recommend follow-up with pain management to further monitor and adjust his medications. Recommend to continue to try to wean off hydrocodone. This can be done with the help of his PCP or pain management. Patient with hyperlipidemia. At discharge patient will continue with Lipitor 20 mg daily. Vital Signs/Physical Exam: Temp Pulse Resp BP Pulse Ox 97.1 F 114 H 20 141/96 H 94 04/06/21 07:46 04/06/21 07:46 04/06/21 10:12 04/06/21 07:46 04/06/21 10:12 General: Alert, In no apparent distress, Oriented x3, Cooperative HEENT: Atraumatic Neck: Supple Respiratory: Clear to auscultation bilaterally, Normal air movement Cardiovascular: Irregular heart rate/rhythm (A. fib rate controlled) Gastrointestinal: Normal bowel sounds, No tenderness, No masses, No rebound, No guarding Musculoskeletal: No erythema, No tenderness, No warmth Integumentary: No tenderness/swelling (mild non pitting edema) Neurological: Normal speech, Normal strength at 5/5 x4 extr, Normal tone, Normal affect Laboratory Data at Discharge: WBC 7.90 K/uL (4.3-10.9) 04/06/21 05:00 Hgb 14.2 g/dL (13.6-17.9) 04/06/21 05:00 Hct 43.3 % (39.6-49.0) 04/06/21 05:00 Plt Count 387 K/uL (152-406) 04/06/21 05:00 PT 12.9 SECONDS (9.5-12.5) H 04/06/21 00:00 INR 1.12 04/06/21 00:00 Sodium 141 mmol/L (136-145) 04/06/21 05:00 Potassium 3.5 mmol/L (3.5-5.1) 04/06/21 05:00 BUN 13 mg/dL (7-18) 04/06/21 05:00 Creatinine 0.81 mg/dL (0.55-1.3) 04/06/21 05:00 Glucose 88 mg/dL (74-106) 04/06/21 05:00 Phosphorus 3.8 mg/dL (2.5-4.9) 04/06/21 05:00 Magnesium 2.2 mg/dL (1.8-2.4) 04/06/21 05:00 Total Bilirubin 0.7 mg/dL (0.2-1.0) 04/06/21 05:00 AST 56 U/L (15-37) H 04/06/21 05:00 ALT 42 U/L (12-78) 04/06/21 05:00 Alkaline Phosphatase 115 U/L (45-117) 04/06/21 05:00 Troponin I < 0.02 ng/mL (0.0-0.045) 04/06/21 05:00 Triglycerides 230 mg/dL (<150) H 04/06/21 05:00 Cholesterol 181 mg/dL (<200) 04/06/21 05:00 HDL Cholesterol 47 mg/dL (40-60) 04/06/21 05:00 Cholesterol/HDL Ratio 3.85 04/06/21 05:00 Home Medications: Folic Acid 1 mg PO DAILY 02/11/14 Levothyroxine Sodium [Tirosint] 25 mcg PO DAILY 02/11/14 Omeprazole [Prilosec] 40 mg PO DAILY 02/11/14 Digoxin [Lanoxin*] 0.125 mg PO DAILY #30 tab 02/15/14 Apixaban [Eliquis] 5 mg PO BID 04/06/21 Diltiazem HCl [Dilt-Xr] 240 mg PO DAILY 04/06/21 Furosemide [Lasix] 40 mg PO DAILY #30 tab 04/06/21 Gabapentin 600 mg PO Q8HR 04/06/21 Hydrocodone 10/APAP 325 [[place] [id number]*] 1 tab PO TIDP PRN 04/06/21 Losartan Potassium 100 mg PO DAILY 04/06/21 Metoprolol Tartrate 75 mg PO BID 04/06/21 Montelukast [Singulair*] 10 mg PO DAILY 04/06/21 Potassium Chloride 40 meq PO DAILY 04/06/21 Rosuvastatin [Crestor*] 10 mg PO BEDTIME 04/06/21 New Medications: Furosemide [Lasix] 40 mg PO DAILY #30 tab Physician Discharge Instructions: Patient presented with chest pain. Patient with history of hypertension, hypothyroidism, obstructive sleep apnea, CHF, GERD and hyperlipidemia. Patient was admitted for further evaluation. Patient seen and evaluated by cardiology. All medications were restarted. Patient found to have atrial fibrillation with RVR. Patient with history of atrial fibrillation. Patient now back in improved rhythm. Patient remains in atrial fibrillation. Cardiology recommends no further intervention. At discharge patient will continue with aspirin 81 mg daily, Eliquis 5 mg 1 pill twice daily, digoxin 0.125 mg daily, diltiazem 240 mg daily, losartan 100 mg daily, metoprolol 75 mg 1 pill twice daily, Lasix 40 mg daily, and potassium supplementation as directed. Recommend follow-up with cardiology in 1 to 2 weeks to follow-up hospitalization. Patient with chronic diastolic CHF. At discharge patient will continue with Lasix 40 mg daily along with potassium supplementation. Recommend to maintain a 1500 cc/day fluid restriction and low-salt diet. Recommend to monitor weight daily. If weight increases by more than 5 pounds he is to contact his PCP or cardiology for further recommendation. Further adjustment in medication may be required. This can be done with the help of his PCP or makeup artistry instructor. Patient with hypertension. This has remained stable. At discharge patient will continue with diltiazem 240 mg daily, losartan 100 mg daily and metoprolol 75 mg 1 pill twice daily. Recommend to maintain blood pressure less than 130/80. Further adjustment can be done by his PCP or cardiology. Recommend follow-up with PCP or cardiology to follow-up as hospitalization to continue his care. Patient with hypothyroidism. At discharge patient will continue with levothyroxine 25 mcg daily. Patient with obstructive sleep apnea. Patient will continue with CPAP at night. Patient with GERD. At discharge patient will continue with Prilosec as directed. Patient with chronic seasonal allergies. At discharge patient will continue with Singulair 10 mg daily. Patient with chronic pain. At discharge patient will continue with gabapentin 600 mg 3 times a day. Patient will also continue with hydrocodone as directed. Recommend to discontinue Valium as this will increase sedation and interact with his current medications. Recommend follow-up with pain management to further monitor and adjust his medications. Recommend to continue to try to wean off hydrocodone. This can be done with the help of his PCP or pain management. Patient with hyperlipidemia. At discharge patient will continue with Lipitor 20 mg daily. Diet: AHA Activity: Ad rosalind Followup: Unknown,U [Primary Care Provider] - Time spent managing pt's care (in minutes): 55
[2021-04-06 12:01] VITALS: O2SAT 94
[2021-04-06 12:08] VITALS: BP 136/62; TEMP 97.5
[2021-04-06] MEDS ORDERED: ATORVASTATIN 20 MG TAB PO SCH (21:00)
--- NOTE | 2021-04-07 17:45 | EKG ---
Test Date: 2021-04-05 Test Time: 22:30:19 [employer]: MEASUREMENT RESULTS: Intervals: Rate: 166 IN: QRSD: 72 QT: 226 QTc: 375 [place]: P: IN: QRS: 75 T: -85 INTERPRETIVE STATEMENTS: Supraventricular tachycardia Nonspecific ST and T wave abnormality Abnormal ECG Compared to ECG 02/12/2014 17:06:06 ST (T wave) deviation now present Atrial fibrillation no longer present Ventricular premature complex(es) no longer present Electronically Signed On 04-07-21 17:40:28 CDT by Minh Cifuentes
--- NOTE | 2021-04-08 09:05 | CON ---
Date of Consultation: 04/06/2021 Reason For Consultation: Atrial fibrillation with rapid ventricular response. History Of Present Illness: Mr. Perez is 56. He has a hypertension. Has a history of atrial fibri llation for which he takes Eliquis. He came in with rapid AFib. Now, he got digoxin. He is on dilt iazem. He is on metoprolol. He is on losartan and Synthroid. He is back to atrial fibrillation wit h low ventricular response, no symptoms. Past Medical History: Includes hypertension, atrial fibrillation, hypothyroidism. Allergies: HE IS ALLERGIC TO KEFLEX. Review of Systems: Negative. Social History: Negative. Family History: Noncontributory. Medications: As listed earlier. Physical Examination: Vital Signs: He is in AFib, rate of 90. HEENT: Negative. Neck: Supple without any bruit, lymphadenopathy, JVD, or thyromegaly. Chest: Clear to auscultation and percussion. Cardiac: Revealed atrial fibrillation. No murmurs, gallops, or rubs. Abdomen: Obese. Extremities: Revealed trace edema. No clubbing. No cyanosis. Diagnostic Studies: Were all unremarkable. Troponin was negative. EKG showed atrial fibrillation _ . Impression And Plan: Chronic atrial fibrillation with rapid ventricular response, on digoxin, diltia zem, metoprolol, Eliquis, and aspirin. Continue current regimen, increase the beta-rolando as needed . Echocardiogram is pending. Consider cardioversion outpatient. His other problems incl ude obesity, hypertension and hypothyroidism, although those are stable. I think he can go home on h is present regimen, metoprolol. I will see him in the office as an outpatient. WILIAN/FRANK Voice ID: [id number] Report ID: [id number]
== END 2021-04-06 13:33 | disposition home or self-care (01) ==
LOC: ER 22:17 → INTOOBSV 04-06 03:14 → ERHOLD 04-06 03:14 → 4TH 04-06 03:44
PROVIDERS: ADMIT Family Medicine; ATTEND Family Medicine
DX: I48.20 Chronic atrial fibrillation, unspecified (principal); I11.0 Hypertensive heart disease with heart failure; I50.32 Chronic diastolic (congestive) heart failure; E03.9 Hypothyroidism, unspecified; G47.33 Obstructive sleep apnea (adult) (pediatric); K21.9 Gastro-esophageal reflux disease without esophagitis; Z20.822 Contact with and (suspected) exposure to COVID-19; E78.5 Hyperlipidemia, unspecified; G89.29 Other chronic pain; E66.9 Obesity, unspecified; Z68.43 Body mass index [BMI] 50.0-59.9, adult; R94.31 Abnormal electrocardiogram [ECG] [EKG]; J30.2 Other seasonal allergic rhinitis
CPT/HCPCS: 36415; 71045; 80048; 80053; 80061; 80076; 81003; 81015; 82947; 83036; 83735; 83880; 84100; 84439; 84443; 84484; 85025; 85610; 87086; 87088; 93005; 94660; 94760; 96374; 96375; 99285; G0378; J1170; J1650; J1940; J2270; J2405; U0003